=== PATIENT | male | born 1945 | race Caucasian/White ===

== ENCOUNTER 2020-05-04 03:22 | Inpatient (IN) | payer OTHER ==
[~2020-05-04] VITALS: Ht 175.3 cm; Wt 77.1 kg
[2020-05-04 05:10] LABS: Basophils # (auto) 0 10 ^3/uL (0-0.2); Basophils % (auto) 0.3 % (0.0-2.0); Eosinophils # (auto) 0 10 ^3/uL (0-0.8); Hematocrit 34.2 % (41.0-53.0); Hemoglobin 11.7 g/dL (13.5-17.5); Lymphocytes # (auto) 0.3 10 ^3/uL (0.4-5.4); Lymphocytes % (auto) 3.5 % (10.0-50.0); Mean Corpuscular Hemoglobin 28.7 pg (28.0-32.0); Mean Corpuscular Hgb Conc. 34.2 g/dL (32.0-36.0); Mean Corpuscular Volume 83.9 fL (80.0-100.0); Monocytes # (auto) 0.9 10 ^3/uL (0-1.3); Monocytes % (auto) 11.9 % (0.0-12.0); Neutrophils # (auto) 6.3 10 ^3/uL (1.6-8.6); Neutrophils % (auto) 84.3 % (37.0-80.0); Red Blood Cells 4.07 10^6/uL (4.5-5.90); Red Cell Distribution Width 13.4 % (11.8-14.3); White Blood Cell 7.4 10^3/uL (4.4-10.8)
[2020-05-04 05:33] LABS: Calcium 8.3 mg/dL (8.5-10.1); Magnesium 2.3 mg/dL (1.6-2.6); Potassium 3.4 mmol/L (3.5-5.1)
[2020-05-04 05:40] LABS: BUN/Creatinine Ratio 12.5; Bilirubin, Total 1.2 mg/dL (0.2-1.0); Total Protein 8.2 g/dL (6.4-8.2)
[2020-05-04] MEDS ORDERED: POTASSIUM EFFERVESENT TAB 25 MEQ PO ONE (06:00)
[2020-05-04] MEDS ORDERED: ASPirin 325 MG TAB PO ONE (06:00)
[2020-05-04] MEDS ORDERED: LORazepam 2MG/ML-1ML VIAL IV ONE (08:15)
[2020-05-04] MEDS ORDERED: MORPHINE SULFATE INJECTION 2 MG/ML SYRG IV PRN (09:15)
[2020-05-04] MEDS ORDERED: NITROGLYCERIN 0.4 MG SL TAB SL PRN (09:15)
[2020-05-04] MEDS ORDERED: HYDROcodone-ACET 5/325MG TAB PO PRN (09:15)
[2020-05-04] MEDS: CHOLECALCIFEROL (VITD3) 2,000 UNIT CAP/TAB PO SCH (10:25)
[2020-05-04] MEDS: ASCORBIC ACID 1,000 MG TAB PO SCH (10:26)
[2020-05-04] MEDS: ENOXAPARIN SOD 40 MG/0.4 ML SYRINGE SC SCH ×2 (10:26→21:59)
[2020-05-04] MEDS: ZINC SULFATE 220mg CAP or TAB PO SCH (10:26)
[2020-05-04] MEDS: DexAMETHasone SOD PHOS 10MG/1ML VIAL INJ IV SCH (10:26)
[2020-05-04] MEDS: DOXYCYCLINE 100MG/250ML 250 ML IV SCH ×2 (10:27→21:59)
[2020-05-04] MEDS: BUDESONIDE (INHALATION) 180 MCG IH IN SCH ×2 (11:52→22:00)
[2020-05-04] MEDS ORDERED: ACETYLCYSTEINE 10 %(100MG/ML) SOL 4ML NEB SCH (12:00)
[2020-05-04 14:22] LABS: CRP High Sensitivity 12.7 mg/dL (< 0.3)
[2020-05-04 14:50] VITALS: BP 136/65
[2020-05-04] MEDS: MORPHINE SULFATE INJECTION 2 MG/ML SYRG IV PRN (17:18)
[2020-05-04] MEDS: ONDANSETRON HCL 4 MG/2 ML VIAL IV PRN (17:18)
[2020-05-04 20:14] LABS: Urine Bacteria NONE SEEN /hpf (None Seen); Urine Blood TRACE /uL (Negative); Urine Mucus FEW (None Seen); Urine Specific Gravity 1.016 (1.001-1.035); Urine WBC 1 /hpf (0 - 3)
[2020-05-04] MEDS: ALPRAZolam 0.25 MG TAB PO PRN (22:05)
[2020-05-05 05:46] LABS: Basophils # (auto) 0 10 ^3/uL (0-0.2); Basophils % (auto) 0.1 % (0.0-2.0); Eosinophils # (auto) 0 10 ^3/uL (0-0.8); Hematocrit 34.4 % (41.0-53.0); Hemoglobin 11.8 g/dL (13.5-17.5); Lymphocytes # (auto) 0.6 10 ^3/uL (0.4-5.4); Lymphocytes % (auto) 5.5 % (10.0-50.0); Mean Corpuscular Hgb Conc. 34.4 g/dL (32.0-36.0); Mean Corpuscular Volume 84.3 fL (80.0-100.0); Monocytes # (auto) 1.2 10 ^3/uL (0-1.3); Neutrophils % (auto) 83.4 % (37.0-80.0); Red Blood Cells 4.08 10^6/uL (4.5-5.90); Red Cell Distribution Width 13.3 % (11.8-14.3); White Blood Cell 10.8 10^3/uL (4.4-10.8)
[2020-05-05 06:12] LABS: Potassium 4.1 mmol/L (3.5-5.1)
[2020-05-05 06:18] LABS: BUN/Creatinine Ratio 17.6; Bilirubin, Total 1.3 mg/dL (0.2-1.0); Magnesium 2.3 mg/dL (1.6-2.6); Total Protein 8.6 g/dL (6.4-8.2)
[2020-05-05] MEDS: BUDESONIDE (INHALATION) 180 MCG IH IN SCH (10:00)
[2020-05-05] MEDS: DexAMETHasone SOD PHOS 10MG/1ML VIAL INJ IV SCH (10:16)
[2020-05-05] MEDS: ASCORBIC ACID 1,000 MG TAB PO SCH (10:17)
[2020-05-05] MEDS: ENOXAPARIN SOD 40 MG/0.4 ML SYRINGE SC SCH ×2 (10:17→22:00)
[2020-05-05] MEDS: ZINC SULFATE 220mg CAP or TAB PO SCH (10:17)
[2020-05-05] MEDS: DOXYCYCLINE 100MG/250ML 250 ML IV SCH ×2 (10:18→22:00)
[2020-05-05] MEDS: CHOLECALCIFEROL (VITD3) 2,000 UNIT CAP/TAB PO SCH (10:25)
[2020-05-05] MEDS: ONDANSETRON HCL 4 MG/2 ML VIAL IV PRN (11:27)
[2020-05-05] MEDS ORDERED: REMDESIVIR PER PHARMACY 0 ML IV SCH (17:45)
[2020-05-05] MEDS ORDERED: REMDESIVIR 200 MG in NS 210ml LOADING DOSE ADULT IV ONE (20:30)
[2020-05-05] MEDS: ALPRAZolam 0.25 MG TAB PO PRN (23:20)
[2020-05-06] MEDS: BUDESONIDE (INHALATION) 180 MCG IH IN SCH ×3 (00:50→22:00)
[2020-05-06] MEDS: ALBUTEROL SULF HFA 90MCG INH 200DOSE IN PRN ×3 (00:50→22:40)
[2020-05-06 06:32] LABS: Potassium 3.6 mmol/L (3.5-5.1)
[2020-05-06 06:45] LABS: Albumin 2.7 g/dL (3.4-5.0); BUN/Creatinine Ratio 27.4; Bilirubin, Total 1.2 mg/dL (0.2-1.0); Calcium 8.6 mg/dL (8.5-10.1); Total Protein 7.8 g/dL (6.4-8.2)
[2020-05-06 08:13] LABS: Basophils # (auto) 0 10 ^3/uL (0-0.2); Basophils % (auto) 0.1 % (0.0-2.0); Eosinophils # (auto) 0 10 ^3/uL (0-0.8); Hematocrit 33.5 % (41.0-53.0); Hemoglobin 11.3 g/dL (13.5-17.5); Lymphocytes # (auto) 0.4 10 ^3/uL (0.4-5.4); Lymphocytes % (auto) 4.3 % (10.0-50.0); Mean Corpuscular Hemoglobin 28.3 pg (28.0-32.0); Mean Corpuscular Hgb Conc. 33.8 g/dL (32.0-36.0); Mean Corpuscular Volume 83.6 fL (80.0-100.0); Monocytes # (auto) 1.1 10 ^3/uL (0-1.3); Monocytes % (auto) 10.7 % (0.0-12.0); Neutrophils # (auto) 8.4 10 ^3/uL (1.6-8.6); Neutrophils % (auto) 84.9 % (37.0-80.0); Red Blood Cells 4.01 10^6/uL (4.5-5.90); Red Cell Distribution Width 13.4 % (11.8-14.3); White Blood Cell 9.9 10^3/uL (4.4-10.8)
[2020-05-06] MEDS: ZINC SULFATE 220mg CAP or TAB PO SCH (08:15)
[2020-05-06] MEDS: ASCORBIC ACID 1,000 MG TAB PO SCH (08:15)
[2020-05-06] MEDS: DOXYCYCLINE 100MG/250ML 250 ML IV SCH ×2 (08:15→22:10)
[2020-05-06] MEDS: ENOXAPARIN SOD 40 MG/0.4 ML SYRINGE SC SCH ×2 (08:15→22:10)
[2020-05-06] MEDS: CHOLECALCIFEROL (VITD3) 2,000 UNIT CAP/TAB PO SCH (08:15)
[2020-05-06] MEDS: DexAMETHasone SOD PHOS 10MG/1ML VIAL INJ IV SCH (08:15)
[2020-05-06] MEDS: ALPRAZolam 0.25 MG TAB PO PRN (14:03)
[2020-05-06] MEDS: ONDANSETRON HCL 4 MG/2 ML VIAL IV PRN ×2 (14:03→22:31)
[2020-05-06] MEDS: REMDESIVIR 100mg 100 MG in SODIUM CHL 0.9% 230 ML IV SCH (15:00)
[2020-05-06] MEDS: MORPHINE SULFATE INJECTION 2 MG/ML SYRG IV PRN (22:30)
[2020-05-07] MEDS: BUDESONIDE (INHALATION) 180 MCG IH IN SCH (06:20)
[2020-05-07 06:38] LABS: Potassium 3.6 mmol/L (3.5-5.1)
[2020-05-07] MEDS: MORPHINE SULFATE INJECTION 2 MG/ML SYRG IV PRN (06:44)
[2020-05-07] MEDS: ONDANSETRON HCL 4 MG/2 ML VIAL IV PRN (06:44)
[2020-05-07 06:48] LABS: Albumin 2.7 g/dL (3.4-5.0); BUN/Creatinine Ratio 29.4; Bilirubin, Total 1.5 mg/dL (0.2-1.0); Calcium 8.5 mg/dL (8.5-10.1); Total Protein 8.1 g/dL (6.4-8.2)
[2020-05-07] MEDS: ZINC SULFATE 220mg CAP or TAB PO SCH (07:42)
[2020-05-07] MEDS: ASCORBIC ACID 1,000 MG TAB PO SCH (07:42)
[2020-05-07] MEDS: DOXYCYCLINE 100MG/250ML 250 ML IV SCH ×2 (07:42→22:13)
[2020-05-07] MEDS: ENOXAPARIN SOD 40 MG/0.4 ML SYRINGE SC SCH ×2 (07:42→22:12)
[2020-05-07] MEDS: DexAMETHasone SOD PHOS 10MG/1ML VIAL INJ IV SCH (07:42)
[2020-05-07] MEDS: CHOLECALCIFEROL (VITD3) 2,000 UNIT CAP/TAB PO SCH (07:42)
[2020-05-07] MEDS: ALPRAZolam 0.25 MG TAB PO PRN (07:43)
[2020-05-07 11:00] VITALS: BP 130/70
[2020-05-07 14:12] VITALS: BP 148/84
[2020-05-07] MEDS ORDERED: ALPRAZolam 0.5 MG TAB PO ONE (14:15)
[2020-05-07] MEDS ORDERED: ALPRAZolam 0.25 MG TAB PO PRN ×2 (14:15→14:30)
[2020-05-07] MEDS ORDERED: ALPR1TAB2 PO (14:26)
[2020-05-07] MEDS: REMDESIVIR 100mg 100 MG in SODIUM CHL 0.9% 230 ML IV SCH (14:56)
[2020-05-07] MEDS ORDERED: LORazepam 2MG/ML-1ML VIAL IV PRN (17:15)
[2020-05-07 18:05] VITALS: BP 155/71
[2020-05-07] MEDS ORDERED: PANTOPRAZOLE 40 MG/10 ML VIAL INJ IV SCH (18:15)
[2020-05-07] MEDS ORDERED: ALBUTEROL SULF 2.5 MG/0.5ML(0.5%) NEB SOLN NEB PRN (19:15)
[2020-05-07 19:50] VITALS: BP 141/72
[2020-05-07] MEDS: ACETAMINOPHEN 325 MG TAB PO PRN ×2 (20:45→22:12)
[2020-05-07 21:45] VITALS: BP 136/81
[2020-05-07] MEDS ORDERED: BUDESONIDE (INHALATION) 0.5 MG/2 ML NEB NEB SCH (22:00)
[2020-05-07] MEDS: LORazepam 2MG/ML-1ML VIAL IV PRN (22:42)
[2020-05-08 00:25] VITALS: BP 138/73
[2020-05-08 01:10] VITALS: BP 132/72
[2020-05-08] MEDS: LORazepam 2MG/ML-1ML VIAL IV PRN (02:50)
[2020-05-08] MEDS ORDERED: SUCCINYLCHOLINE CHLORIDE 20 MG/ML 10ML VIAL IV ONE (04:10)
[2020-05-08] MEDS ORDERED: ETOMIDATE (2MG/ML) 20ML VIAL IV ONE (04:10)
[2020-05-08] MEDS ORDERED: PROPOFOL 100 ML IV ONE (04:16)
[2020-05-08 04:35] VITALS: BP 133/70
[2020-05-08] MEDS ORDERED: MIDAZOLAM DRIP 50 mg/50mL 50 ML IV ONE (04:54)
[2020-05-08] MEDS ORDERED: NOREPINEPHRINE 8 MG/250ML KIT 250 ML IV ONE (05:16)
[2020-05-08 05:45] VITALS: BP 59/36
[2020-05-08] MEDS ORDERED: PROPOFOL 100 ML IV SCH (05:45)
[2020-05-08] MEDS ORDERED: fentaNYL Drip 2500mCg/250mlNS 250 ML IV SCH (05:45)
[2020-05-08] MEDS ORDERED: NOREPINEPHRINE 8 MG/250ML KIT 250 ML IV SCH (05:45)
[2020-05-08] MEDS ORDERED: MIDAZOLAM DRIP 50 mg/50mL 50 ML IV SCH (05:45)
[2020-05-08] MEDS ORDERED: SODIUM BICARBONATE 8.4 % INJ 50ML VIAL IV ONE ×2 (05:53→05:57)
[2020-05-08 06:15] LABS: Basophils # (auto) 0 10 ^3/uL (0-0.2); Eosinophils # (auto) 0 10 ^3/uL (0-0.8); Hemoglobin 10.3 g/dL (13.5-17.5); Lymphocytes # (auto) 1.2 10 ^3/uL (0.4-5.4); Monocytes # (auto) 0.8 10 ^3/uL (0-1.3)
[2020-05-08 06:20] LABS: Basophils % (auto) 0.1 % (0.0-2.0); Hematocrit 33.1 % (41.0-53.0); Lymphocytes % (auto) 10.6 % (10.0-50.0); Mean Corpuscular Hemoglobin 28.2 pg (28.0-32.0); Mean Corpuscular Volume 91.1 fL (80.0-100.0); Monocytes % (auto) 6.9 % (0.0-12.0); Neutrophils # (auto) 9.6 10 ^3/uL (1.6-8.6); Neutrophils % (auto) 82.4 % (37.0-80.0); Nucleated Red Blood Cells % 0.1 %; Red Blood Cells 3.63 10^6/uL (4.5-5.90); Red Cell Distribution Width 13.7 % (11.8-14.3); White Blood Cell 11.7 10^3/uL (4.4-10.8)
[2020-05-08 06:35] LABS: Potassium 3.7 mmol/L (3.5-5.1)
[2020-05-08 06:46] LABS: Albumin 2.1 g/dL (3.4-5.0); BUN/Creatinine Ratio 18.1; Bilirubin, Total 1.4 mg/dL (0.2-1.0); Calcium 9.8 mg/dL (8.5-10.1); Magnesium 2.4 mg/dL (1.6-2.6); Total Protein 6.9 g/dL (6.4-8.2)
[2020-05-08] MEDS ORDERED: SODIUM BICARBONATE 8.4% INJ 50ML SYRINGE IV ONE (12:20)
[2020-05-08] MEDS ORDERED: EPINEPHrine HCL 1 MG/10 ML SYRG IV ONE (12:20)
== END 2020-05-08 06:12 | DRG 208 ==
LOC: EDBD 03:22 → ER 03:26 → TELE 03:27
PROVIDERS: ADMIT Nurse Practitioner Acute Care; ATTEND Internal Medicine
PROC: 5A1935Z Respiratory Ventilation, Less than 24 Consecutive Hours (ICD-10-PCS; 2020-05-07)
PROC: XW033E5 Introduction of Remdesivir Anti-infective into Peripheral Vein, Percutaneous Approach, New Technology Group 5 (ICD-10-PCS; principal; 2020-05-08)
PROC: 0BH17EZ Insertion of Endotracheal Airway into Trachea, Via Natural or Artificial Opening (ICD-10-PCS; 2020-05-08)
PROC: 5A12012 Performance of Cardiac Output, Single, Manual (ICD-10-PCS; 2020-05-08)
PROC: 5A09357 Assistance with Respiratory Ventilation, Less than 24 Consecutive Hours, Continuous Positive Airway Pressure (ICD-10-PCS; 2020-05-08)
DX: U07.1 COVID-19 (principal); J12.82 Pneumonia due to coronavirus disease 2019; J96.21 Acute and chronic respiratory failure with hypoxia; E87.6 Hypokalemia; I10 Essential (primary) hypertension; I46.9 Cardiac arrest, cause unspecified; F41.9 Anxiety disorder, unspecified; N40.0 Benign prostatic hyperplasia without lower urinary tract symptoms; M19.90 Unspecified osteoarthritis, unspecified site; Z66 Do not resuscitate; J84.10 Pulmonary fibrosis, unspecified; Z79.51 Long term (current) use of inhaled steroids; Z86.73 Personal history of transient ischemic attack (TIA), and cerebral infarction without residual deficits; Z87.891 Personal history of nicotine dependence; Z99.81 Dependence on supplemental oxygen
CPT/HCPCS: 36415; 36600; 71045; 80053; 81001; 82306; 82550; 82728; 82805; 82962; 83605; 83615; 83735; 83880; 84443; 84484; 85025; 85379; 86141; 87040; 87070; 87077; 87186; 87205; 87426; 87804; 92950; 93005; 93306; 94002; 94003; 94640; 94660; C9113; G0378; J0330; J1100; J2250; J2405; J2704; J3490